=== PATIENT | female | born 1950 ===

== ENCOUNTER 2016-12-08 12:49 | Emergency (ER) | payer OTHER ==
[2016-12-08 13:13] VITALS: RESP 18; TEMP 98.7; O2SAT 97; BMI 30.2
[2016-12-08] MEDS ORDERED: Tmp-Smz 800 mg-160 mg DS Tab PO STA (13:33)
--- NOTE | 2016-12-08 13:45 | ED PDOC ---
Arrival/HPI - General Historian: Patient - History of Present Illness Time/Duration: > week Symptom Onset: Other Symptom Course: Improving Context: Home - General Chief Complaint: Lower Extremity Problem/Injury Time Seen by Provider: 12/08/16 13:04 - History of Present Illness Narrative History of Present Illness (Text): 12/08/16 13:35 66 yo female with PMH of HTN and DM presented to ED with swelling in right foot. 5 day ago while taking out the trash had a broken piece of a glass bottle penetrate the lateral aspect of her foot. She pulled the piece of glass out and put cream on the injury. She states that initially the foot was black and swollen. Over the past 5 day the swelling and bruising has improved. She denies any restriction in motion. Patient states that she is able to ambulate without difficulty. She is experiencing mild pain and the laceration is healing. ( Liz Shelby) Past Medical History - Provider Review Nursing Documentation Reviewed: Yes - Infectious Disease Hx of Infectious Diseases: None - Tetanus Immunization Tetanus Immunization: Unknown - Reproductive Menopause: Yes - Cardiac Hx Hypertension: Yes - Endocrine/Metabolic Hx Diabetes Mellitus Type 2: Yes - Psychiatric Hx Substance Use: No Family/Social History - Physician Review Nursing Documentation Reviewed: Yes Family/Social History: No Known Family HX Smoking Status: Never Smoked Hx Alcohol Use: No Hx Substance Use: No Allergies/Home Meds Allergies/Adverse Reactions: Allergies No Known Allergies Allergy (Verified 12/08/16 13:13) Home Medications: Home Meds Medication Instructions Recorded Confirmed Lisinopril [Zestril] 20 mg PO DAILY 12/08/16 12/08/16 MetFORMIN [glucoPHAGE] 1,000 mg PO DAILY 12/08/16 12/08/16 Review of Systems - Review of Systems Constitutional: Normal. absent: Fatigue, Weight Change, Fevers Eyes: Normal. absent: Vision Changes ENT: Normal Respiratory: Normal. absent: SOB, Cough, Wheezing Cardiovascular: Normal. absent: Chest Pain, Palpitations, Syncope Gastrointestinal: Normal. absent: Abdominal Pain, Constipation, Diarrhea, Nausea, Vomiting Genitourinary Female: Normal. absent: Dysuria, Frequency, Hematuria Musculoskeletal: Normal. absent: Arthralgias, Myalgias Skin: Normal, Laceration (right foot ). absent: Rash, Pruritis Neurological: Normal. absent: Headache, Dizziness, Focal Weakness Endocrine: Normal. absent: Diaphoresis Hemo/Lymphatic: Normal. absent: Easy Bleeding, Easy Bruising Psychiatric: Normal Physical Exam - Systems Exam Head: Present: Atraumatic, Normocephalic Pupils: Present: PERRL. No: Sluggish Extroacular Muscles: Present: EOMI. No: Gaze Palsy, Entrapment Conjunctiva: Present: Normal Mouth: Present: Moist Mucous Membranes, Normal Tounge. No: Dry Nose (External): Present: Atraumatic. No: Abrasion, Contusion, Laceration Respiratory/Chest: Present: Clear to Auscultation. No: Good Air Exchange, Respiratory Distress, Accessory Muscle Use, Wheezes, Decreased Breath Sounds, Rales, Rhonchi Cardiovascular: Present: Regular Rate and Rhythm, Murmurs, Normal S1, S2. No: Irregular Rhythm, Tachycardic Abdomen: Present: Tenderness, Normal Bowel Sounds. No: Distention, Peritoneal Signs, Guarding Upper Extremity: Present: Normal Inspection. No: Cyanosis, Edema Lower Extremity: Present: NORMAL PULSES, Swelling, Other (lateral right foot with swelling and laceration, no discharge, well healing lacteration). No: CALF TENDERNESS Neurological: Present: GCS=15, CN II-XII Intact, Speech Normal Skin: Present: Warm, Dry, Normal Color, Laceration. No: Rashes Psychiatric: Present: Alert, Oriented x 3, Normal Insight, Normal Concentration Vital Signs Temp Pulse Resp BP Pulse Ox 12/08/16 13:08 98.7 F 69 18 134/69 97 Medical Decision Making ED Course and Treatment: Patient Seen With Resident: In agreement with resident note which contains more details about the patient. Patient was seen and evaluated with resident. Came up with plan and treatment together. (Michael Sargent) 12/08/16 13:50 Impression: 66 yo female with PMH of HTN, DM presented with 5 day history of laceration with swelling of right foot. Differential Diagnosis included but are not limited to: foreign body Plan: - right foot xray - abx -- Reassess and disposition Progress Notes: 12/08/16 14:30 - xray of right foot showed mild dorsal swelling, no foreign body seen. (Liz Shelby) - RAD Interpretation Radiology Orders: 12/08/16 13:32 FOOT RIGHT 3 VIEWS ROUTINE [RAD] Stat - Medication Orders Current Medication Orders: Discontinued Medications Cephalexin Monohydrate (Keflex) 500 mg PO STAT STA PRN Reason: Protocol Stop: 12/08/16 13:34 Last Admin: 12/08/16 13:42 Dose: 500 mg Trimethoprim/Sulfamethoxazole (Bactrim Ds Tab) 1 tab PO STAT STA PRN Reason: Protocol Stop: 12/08/16 13:34 Last Admin: 12/08/16 13:41 Dose: 1 tab Disposition/Present on Arrival - Present on Arrival Any Indicators Present on Arrival: No History of DVT/PE: No History of Uncontrolled Diabetes: No Urinary Catheter: No History of Decub. Ulcer: No History Surgical Site Infection Following: None - Disposition Have Diagnosis and Disposition been Completed?: Yes Disposition Time: 14:50 - Disposition Diagnosis: Swelling of right lower extremity Disposition: HOME/ ROUTINE Patient Problems: Current Active Problems Problem Status Onset Swelling of right lower extremity Acute Condition: GOOD Additional Instructions: PLEASE RETURN TO THE EMERGENCY DEPARTMENT FOR NEW OR WORSENING SYMPTOMS. RETURN RIGHT AWAY IF YOU CANNOT FOLLOW UP WITH YOUR PRIMARY CARE DOCTOR, OR CLINIC, IN 1-2 DAYS FOR WOUND CHECK. Prescriptions: Cephalexin [Keflex] 500 mg PO TID #21 capsule Referrals: Giselle Bronson MD [Primary Care Provider] - Follow up with primary
--- NOTE | 2016-12-08 14:12 | RAD ---
PROCEDURE: Right Foot Radiographs. HISTORY: r/o foreign body COMPARISON: None. FINDINGS: BONES: Bone alignment and mineralization are normal. There is no acute fracture or bone destruction. JOINTS: The joint spaces are preserved. SOFT TISSUES: There is mild dorsal soft tissue swelling. No radiopaque foreign body. OTHER FINDINGS: None. IMPRESSION: Mild dorsal soft tissue swelling. No radiopaque foreign body.
[2016-12-08 15:33] VITALS: BP 129/76; PULSE 68
== END 2016-12-08 15:23 | disposition home or self-care (01) ==
LOC: ED 12:49
DX: M79.89 Other specified soft tissue disorders (principal)